=== PATIENT | female | born 1960 | race Caucasian/White ===

== ENCOUNTER 2016-11-11 05:11 | Inpatient (IN) | payer OTHER ==
[2016-09-29 15:18] VITALS: BMI 32.0
--- NOTE | 2016-09-29 15:58 | PAT Medication Instructions ---
Service Date Sep 29, 2016. Current Home Medication List Aspirin (Aspirin Ec), 81 MG PO QAM Atorvastatin (Lipitor), 10 MG PO QAM Calcium Carbonate-Vitamin D (Calcium + D), 1 TAB PO QAM Cholecalciferol (Vitamin D3), 1 TAB PO QAM Coenzyme Q10 (Ubidecarenone) (Coq10), 100 MG PO QAM Diphenhydramine Hcl (Benadryl Allergy), 1 CAP PO HS PRN for PRN Fish Oil ([place]-3), 1 CAP PO QPM Hydrochlorothiazide (Hydrochlorothiazide), 1 TAB PO QAM Ibuprofen (Advil), 800 MG PO PRN Levothyroxine Sodium (Synthroid), 100 MCG PO QAM Multivitamin (Multivitamin), 1 TAB PO QPM Valsartan (Diovan), 80 MG PO QAM [Biotin], 1 TAB PO QPM [Vitamin C], 1 TAB PO QPM Medication Instructions For Your Scheduled Surgery - Check with surgeon for instructions: Ibuprofen (Advil), 800 MG PO PRN - Hold the following medications 2 weeks prior to surgery: Fish Oil ([place]-3), 1 CAP PO QPM Coenzyme Q10 (Ubidecarenone) (Coq10), 100 MG PO QAM - Hold the following medications the morning of surgery: Valsartan (Diovan), 80 MG PO QAM Hydrochlorothiazide (Hydrochlorothiazide), 1 TAB PO QAM Cholecalciferol (Vitamin D3), 1 TAB PO QAM Calcium Carbonate-Vitamin D (Calcium + D), 1 TAB PO QAM Aspirin (Aspirin Ec), 81 MG PO QAM (okay per surgeon) - Take the following medications the morning of surgery with a sip of water: Levothyroxine Sodium (Synthroid), 100 MCG PO QAM Atorvastatin (Lipitor), 10 MG PO QAM - Take the following medications as scheduled the night before surgery: [Biotin], 1 TAB PO QPM [Vitamin C], 1 TAB PO QPM Multivitamin (Multivitamin), 1 TAB PO QPM Diphenhydramine Hcl (Benadryl Allergy), 1 CAP PO HS PRN for PRN If you have any questions please call us at [phone] (Rosangela Myles PA-C) or [phone] or [phone]
--- NOTE | 2016-09-29 16:50 | DIAGNOSTIC IMAGING REPORT ---
CHEST PREADMISSION(PA/LAT) HISTORY: Preop. COMPARISON: None. FINDINGS: The lungs are clear. Cardiac silhouette is normal in size. No pleural effusions. No pneumothorax. IMPRESSION: No acute process. Electronically signed by: Bob Monk M.D. 09/29/2016 4:49 PM Dictated Date/Time: 09/29/2016 4:46 PM
[2016-09-29 16:58] LABS: BASO % 0.3 %; BASO ABS # 0.02 K/uL (0-0.2); COMPLETE YES; EOS % 1.5 %; HEMATOCRIT 37.5 % (37-47); IG% 0.2 %; LYMPH % 27.9 %; LYMPH ABS # 1.84 K/uL (1.2-3.4); MEAN CORPUSCULAR HEMOGLOBIN 30.8 pg (25-34); MEAN CORPUSCULAR HGB CONC 33.9 g/dl (32-36); MEAN PLATELET VOLUME 9.4 fL (7.4-10.4); MONO % 7.6 %; NEUT % 62.5 %; PLATELET COUNT 370 K/uL (130-400); RED BLOOD COUNT 4.12 M/uL (4.2-5.4)
[2016-09-29 17:08] LABS: INR 1.1 (0.9-1.1); PROTHROMBIN TIME (PATIENT) 11.3 SECONDS (9.0-12.0)
--- NOTE | 2016-11-10 17:41 | HISTORY & PHYSICAL EXAMINATION ---
DATE OF ADMISSION: 11/11/2016 HISTORY AND PHYSICAL ADMISSION NOTE PRE-OPERATIVE DIAGNOSIS: Primary osteoarthritis of the left hip. 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 She states she has been having left hip pain for about 2-1/2 years. Radiographs and clinical examination have been diagnostic for primary osteoarthritis of the left hip. After failing years of conservative treatment, she elected to proceed with a left total hip arthroplasty. She understands the risks, benefits, alternatives to procedure and elected to proceed. PAST MEDICAL HISTORY: Significant for hypothyroidism, history of DVTs, hyperlipidemia, and hypertension. PAST SURGICAL HISTORY: Significant for a T\T\A, hysterectomy and a right inguinal hernia repair. ALLERGIES: None. MEDICATIONS: Include Levoxyl 100 mcg daily, hydrochlorothiazide 12.5 mg daily, valsartan 80 mg daily, aspirin 81 mg daily, Lipitor 10 mg daily. FAMILY HISTORY: Noncontributory. SOCIAL HISTORY: She is . She has 1-2 drinks a week. She denies any tobacco or IV drug use. She is very active. REVIEW OF SYSTEMS: The patient complains of significant left hip and groin pain. All other pertinent review of systems are negative. PHYSICAL EXAMINATION: GENERAL: She is awake, alert and orient x3. She is in no apparent distress. She is very pleasant. HEENT: Pupils are equal, round and reactive to light. Extraocular motions intact. Oral mucosa is pink and moist. HEART: Regular rate per radial pulse. LUNGS: Jemma symmetrically bilaterally with no audible breath sounds. ABDOMEN: Soft, nontender, nondistended. MUSCULOSKELETAL: On physical examination of her left hip, she does ambulate independently. She has a slight limp. She has very reproducible deep groin pain with forced internal and external rotation of the hip. Her leg lengths are essentially equal. IMAGING DATA: Radiographs of the left hip do show advanced osteoarthritis and osteophyte formation on the superior lateral aspect of the acetabulum. IMPRESSION: Primary osteoarthritis of the left hip. PLAN: We will proceed with a Biomet taper lock left total hip arthroplasty. Postoperatively, she will be kept at the hospital for postoperative medical management. She will be started on Xarelto postoperatively because of her history of DVTs.
[~2016-11-11] VITALS: Ht 175.3 cm; Wt 98.8 kg
[2016-11-11] VITALS (9 sets, daily range): BP systolic 96–151; BP diastolic 60–88; PULSE 69–84; TEMP 36.5–36.8; O2SAT 96–100; Ht 175.3 cm; Wt 98.8 kg
[~2016-11-11 05:11] MED LIST: ASPI81TA28 PO; ATOR10TA88 PO; BIOTPOW17 PO; CALC600T9 PO; CHOL1000 PO; COEN100C7 PO; DIPH25CA65 PO; DVN80 PO; HYDR12.55 PO; IBUP-1050 PO; LEVO100T PO; MULT-506 PO; OMEG10007 PO; VITAMIN C PO
[2016-11-11] MEDS ORDERED: GABAPENTIN 300 MG CAP PO SCH (06:00)
[2016-11-11] MEDS ORDERED: ROPIVACAINE 5MG/ML 30 ML 150 MG, BUPIVACAINE/EPINEPHR 0.5% MPF 30 ML, KETOROLAC TROMETH... INFIL SCH ×7 (06:00)
[2016-11-11] MEDS ORDERED: LACTATED RINGER'S 1000ML IV SCH (06:00)
[2016-11-11] MEDS ORDERED: CEFAZOLIN 2000 MG/60 ML D5W 60 ML IV SCH (06:00)
[2016-11-11] MEDS ORDERED: FAMOTIDINE 20 MG TAB PO SCH (06:00)
[2016-11-11] MEDS ORDERED: LACTATED RINGER'S 1000ML 500 ML IV ONE (06:00)
[2016-11-11] MEDS ORDERED: ACETAMINOPHEN 500 MG TAB PO SCH (06:00)
[2016-11-11] MEDS ORDERED: LACTATED RINGER'S 1000ML 1,000 ML IV SCH (06:00)
[2016-11-11] MEDS ORDERED: BUPIVACAINE 0.5 % 5 MG/1 ML PF 10ML VIAL ONE (06:18)
--- NOTE | 2016-11-11 06:21 | History & Physical Bridge Note ---
H&P Re-Evaluation Bridge Note: I have examined the patient, reviewed the History & Physical and in the interval since the performance of the History & Physical I have noted the following changes of clinical significance: No changes noted
[2016-11-11] MEDS: TRANEXAMIC ACID INJ 1,000 MG in SODIUM CHLORIDE 0.9% 100ML 100 ML IV SCH ×2 (06:30→06:55)
[2016-11-11] MEDS ORDERED: PROPOFOL IV EMULSION 10 MG/ML 20 ML VIAL IV ONE (06:45)
[2016-11-11] MEDS ORDERED: MIDAZOLAM HCL 1 MG/ML 2ML VIAL ONE ×2 (06:45→07:47)
[2016-11-11] MEDS ORDERED: ATROPINE SULFATE 0.1 MG/ML 5ML SYR IV PRN (06:45)
[2016-11-11] MEDS ORDERED: EpHEDrine SULFATE INJ 50 MG/ML AMP IV PRN (06:45)
[2016-11-11] MEDS ORDERED: LIDOCAINE HCL 2% 2 ML VIAL (20MG/ML) ONE (06:45)
[2016-11-11] MEDS ORDERED: FENTANYL CITRATE INJ 50 MCG/1 ML 2 ML VIAL IV PRN (06:45)
[2016-11-11] MEDS ORDERED: FENTANYL CITRATE INJ 50 MCG/1 ML 2 ML VIAL ONE (06:45)
[2016-11-11] MEDS ORDERED: ONDANSETRON INJ 2 MG/ML 2 ML VIAL IV PRN (06:45)
[2016-11-11] MEDS ORDERED: ORTHO JOINT ANESTHETIC ONE (07:01)
[2016-11-11] MEDS ORDERED: BACITRACIN 50000 UNIT VIAL ONE (07:02)
[2016-11-11] MEDS ORDERED: POVIDONE-IODINE OP SOLN 30 ML BTL ONE (07:05)
--- NOTE | 2016-11-11 09:22 | [facility] Post Operative Brief Note ---
Immediate Operative Summary Operative Date Nov 11, 2016. Pre-Operative Diagnosis Primary osteoarthritis of the left hip Post-Operative Diagnosis Primary osteoarthritis of the left hip Procedure(s) Performed Left total hip arthroplasty, direct anterior approach Surgeon Dr Jackson Posada Disc Pad Knockout Worker Surgeon(s) Dr Blake Grigsby Findings as above Specimens A: left femoral head Complication(s) None Disposition Recovery Room / PACU
[2016-11-11] MEDS ORDERED: MoRPHine SULFATE 2 MG/ML CARP IV PRN (09:30)
[2016-11-11] MEDS ORDERED: OXYCODONE HCL IR 5 MG TAB (IMMEDIATE RELEASE) PO PRN (09:30)
[2016-11-11] MEDS ORDERED: MAGNESIUM HYDROXIDE SUSP 30 ML UDC PO PRN (09:30)
[2016-11-11] MEDS ORDERED: BISACODYL 10 MG SUPP PR PRN (09:30)
[2016-11-11] MEDS ORDERED: SOD PHOSPHATE/SOD BIPHOSPHATE ENEMA 132 ML BTL PR PRN (09:30)
--- NOTE | 2016-11-11 10:18 | Anesthesiology Progress Note ---
Anesthesia Post Op Note Date & Time Nov 11, 2016 at 10:19 Vital Signs Pain Intensity: 0 Vital Signs Past 12 Hours Date Time Temp Pulse Resp B/P Pulse Ox O2 Delivery O2 Flow Rate FiO2 11/11/16 10:10 78 16 121/66 100 Nasal Cannula 2 11/11/16 10:00 68 14 100/73 100 Nasal Cannula 2 11/11/16 09:50 65 13 104/73 100 Nasal Cannula 2 11/11/16 09:42 37.0 87 12 123/61 98 Nasal Cannula 2 11/11/16 05:35 36.8 80 20 151/88 100 Room Air Notes Mental Status: alert / awake / arousable, participated in evaluation Pt Amnestic to Procedure: Yes Nausea / Vomiting: adequately controlled Pain: adequately controlled Airway Patency, RR, SpO2: stable & adequate BP & HR: stable & adequate Hydration State: stable & adequate Neuraxial Anesthesia: was administered, sensory block is resolving Anesthetic Complications: no major complications apparent
--- NOTE | 2016-11-11 10:19 | OPERATIVE REPORT ---
DATE OF OPERATION: 11/11/2016 PREOPERATIVE DIAGNOSIS: Primary osteoarthritis of the left hip. POSTOPERATIVE DIAGNOSIS: Same. PROCEDURE: Left total hip arthroplasty through the anterior approach. SURGEON: Dr. Jackson Posada. BALANCE AND HAIRSPRING ASSEMBLER: Dr. Brian Grigsby and Ray Navarrete PA-C, whose assistance was necessary for positioning the leg and helping with retraction. ANESTHESIA: Spinal. COMPLICATIONS: None. CONDITION: Stable to PACU. IMPLANTS USED: I used a Biomet taper lock size 13 standard offset femoral stem with a 40 mm +6 ceramic head, a 40 mm E-poly neutral liner, a 30 mm screw and a 54 mm cup. No cement was used during the case. INDICATIONS: Luz is a very pleasant 56-year-old female who presented to my office with chronic left hip pain. X-rays and clinical examination were diagnostic for primary osteoarthritis of the left hip. After failing conservative treatment, she elected to undergo a left total hip arthroplasty. On 11/11/2016 she arrived at [facility] for the above procedure. She was seen in the preoperative holding area and the operative extremity was identified and signed. She was given a preoperative antibiotic, taken back to the operating room, laid on the table in a supine position. The left hip was then prepped and draped in a sterile fashion. A time-out was done and the patient and operative extremity was properly identified. An anterior Hendrickson approach was utilized. Dissection was taken down through the tensor fascia and the tensor was retracted laterally and the sartorius medially. The rectus was elevated off the femoral neck and the capsule was exposed. The capsule was incised and tagged. The femoral neck was then cut with an oscillating saw and the femoral head was removed. The acetabulum was exposed. Time was spent doing a complete capsular labral release. Sequential reaming up to a size 53 reamer was done. This was checked under fluoroscopy for appropriate position of the cup. A 54 mm cup was then impacted into place. A single 30 mm screw was placed and the E-poly liner was snapped into place. The femoral neck was then exposed and appropriate releases were done. Sequential broaching up to a size 13 broach was done. The 13 seemed to be tight fit. A trial head was placed. The hip was reduced and it looked to be a little bit short. Several different trials were used and a size +6 seemed to be the best fit. She did have a very valgus femoral neck. The final size 13 implant was then impacted into place, followed by a +6 x 40 mm ceramic head. The hip was then reduced and fluoroscopy was used to measure up the lesser trochanters and it appeared to be a great fit. The wound was then irrigated. All surrounding soft tissues were injected with 100 mL of an orthopedic pain control cocktail. The capsule was then tied. A drain was placed. The fascia was closed with #1 Vicryl, skin was closed with 2-0 Vicryl and 3-0 V-Loc suture and a Prineo dressing. She was placed in a soft dressing and taken to the postanesthesia care unit in stable condition. She tolerated the procedure well. I attest to the content of the Intraoperative Record and any orders documented therein. Any exceptio ns are noted below.
--- NOTE | 2016-11-11 10:26 | DIAGNOSTIC IMAGING REPORT ---
AP PELVIS AND LEFT HIP 2 VIEWS CLINICAL HISTORY: Degenerative arthritis COMPARISON STUDY: No previous studies for comparison. FINDINGS: There are moderate osteoarthritic changes present within the right hip. There is unroofing of the right femoral head. On the left there are postsurgical changes of a total left hip arthroplasty. The acetabular and femoral components appear well seated. There is no dislocation. There are no acute fractures. There is air within the soft tissues consistent with recent surgery. There is an overlying surgical drain. IMPRESSION: 1. Postsurgical changes of a total left hip arthroplasty 2. Moderate osteoarthritic changes involving the right hip. Suspected underlying right hip dysplasia. Electronically signed by: Aroldo Acosta M.D. 11/11/2016 10:25 AM Dictated Date/Time: 11/11/2016 10:24 AM
--- NOTE | 2016-11-11 12:13 | DIAGNOSTIC IMAGING REPORT ---
INTRAOPERATIVE LEFT HIP SINGLE VIEW CLINICAL HISTORY: Left hip arthroplasty COMPARISON STUDY: No previous studies for comparison. FINDINGS: 45 seconds of fluoroscopic time was utilized. A single intraoperative fluoroscopic spot images provided for interpretation. There are postsurgical changes of a total left hip arthroplasty. The acetabular and femoral components appear well seated. There is no dislocation of this single projection. IMPRESSION: Intraoperative fluoroscopic spot image demonstrating a total left hip arthroplasty Electronically signed by: Aroldo Acosta M.D. 11/11/2016 12:11 PM Dictated Date/Time: 11/11/2016 12:11 PM
[2016-11-11] MEDS: D5W AND 1/2NSS + 20MEQ KCL 1,000 ML IV SCH ×2 (12:53→22:02)
[2016-11-11 13:13] LABS: CREATININE 0.55 mg/dl (0.60-1.20)
[2016-11-11] MEDS: ACETAMINOPHEN IV 1,000 MG in EMPTY BAG 0 ML IV SCH ×2 (14:14→21:27)
[2016-11-11] MEDS: CEFAZOLIN IV 2,000 MG in DEXTROSE 5% 50ML 50 ML IV SCH ×2 (14:33→21:34)
[2016-11-11] MEDS: KETOROLAC TROMETHAMINE 30 MG/ML VIAL IV. SCH ×2 (16:36→21:36)
[2016-11-11] MEDS ORDERED: BIOTIN PO SCH (21:00)
[2016-11-11] MEDS: ASCORBIC ACID 500 MG TAB PO SCH (21:26)
[2016-11-11] MEDS: MULTIVITAMIN TAB PO SCH (21:26)
[2016-11-11] MEDS: DOCUSATE SODIUM 100 MG CAP PO SCH (21:26)
[2016-11-11] MEDS: SENNA 8.6 MG TAB PO SCH (21:26)
[2016-11-12 03:31] VITALS: BP 99/61; PULSE 80; TEMP 36.6; O2SAT 97
[2016-11-12] MEDS: KETOROLAC TROMETHAMINE 30 MG/ML VIAL IV. SCH ×4 (03:47→21:32)
[2016-11-12] MEDS: LEVOTHYROXINE 100 MCG TAB PO SCH (06:24)
[2016-11-12] MEDS: ACETAMINOPHEN IV 1,000 MG in EMPTY BAG 0 ML IV SCH (06:24)
[2016-11-12 07:19] LABS: BASO % 0.2 %; BASO ABS # 0.02 K/uL (0-0.2); COMPLETE YES; EOS % 1.3 %; HEMATOCRIT 30.4 % (37-47); IG% 0.3 %; LYMPH % 23.6 %; LYMPH ABS # 2.07 K/uL (1.2-3.4); MEAN CELL VOLUME 91.6 fL (80-100); MEAN CORPUSCULAR HEMOGLOBIN 30.7 pg (25-34); MEAN CORPUSCULAR HGB CONC 33.6 g/dl (32-36); MEAN PLATELET VOLUME 9.4 fL (7.4-10.4); MONO % 9.6 %; PLATELET COUNT 262 K/uL (130-400); RED BLOOD COUNT 3.32 M/uL (4.2-5.4); WHITE BLOOD COUNT 8.76 K/uL (4.8-10.8)
[2016-11-12 07:52] LABS: BUN/CREATININE RATIO 16.5 (10-20); CREATININE 0.65 mg/dl (0.60-1.20); POTASSIUM 3.5 mmol/L (3.5-5.1)
[2016-11-12] MEDS: D5W AND 1/2NSS + 20MEQ KCL 1,000 ML IV SCH (08:30)
[2016-11-12] MEDS: ATORVASTATIN 10 MG TAB PO SCH (08:51)
[2016-11-12] MEDS: HYDROCHLOROTHIAZIDE 25 MG TAB PO SCH (08:52)
[2016-11-12] MEDS: DOCUSATE SODIUM 100 MG CAP PO SCH ×2 (08:52→20:55)
[2016-11-12] MEDS: RIVAROXABAN 10 MG TAB PO SCH (08:53)
[2016-11-12] MEDS: VALSARTAN 80 MG TAB PO SCH (08:53)
[2016-11-12] MEDS: CHOLECALCIFEROL 1000 INTER.UNIT TAB PO SCH (08:53)
[2016-11-12] MEDS: CALCIUM 600MG + VIT D 400 IU TAB PO SCH (08:53)
[2016-11-12] MEDS ORDERED: NON-FORMULARY MEDICATION (Coenzyme Q10 (Ubidecarenone) (Coq10) 100 MG) PO SCH (09:00)
[2016-11-12 11:16] VITALS: BP 111/70; PULSE 74; TEMP 36.5; O2SAT 100
[2016-11-12 15:14] VITALS: BP 124/80; PULSE 78; TEMP 36.7; O2SAT 97
[2016-11-12 15:45] VITALS: O2SAT 97
[2016-11-12] MEDS ORDERED: RXC5 PO (15:54)
--- NOTE | 2016-11-12 15:55 | Discharge Instructions ---
Discharge Instructions Admission Reason for Admission: osteoarthritis hip left Discharge Discharge Diagnosis / Problem: L STACIA Discharge Goals Goal(s): Decrease discomfort, Improve function Activity Recommendations Activity Limitations: resume your previous activity Shower/Bathe: may shower/bathe in 3 days may shower on Wednesday, leave glue dressing in place . Instructions / Follow-Up Instructions / Follow-Up in [address] Posada Current Hospital Diet Patient's current hospital diet: Regular Diet Discharge Diet Recommended Diet: Regular Diet Procedures Procedures Performed: Left total hip arthroplasty, direct anterior approach Pending Studies Studies pending at discharge: no Medical Emergencies . Who to Call and When: Medical Emergencies: If at any time you feel your situation is an emergency, please call 911 immediately. . Non-Emergent Contact Non-Emergency issues call your: Surgeon Call Non-Emergent contact if: wound has increased drainage, wound has increased redness . "Provider Documentation" section prepared by Jackson Posada. VTE Core Measure Inpt VTE Proph given/why not?: Other Anticoagulation (Xerelto 10mg daily)
--- NOTE | 2016-11-12 16:05 | PROGRESS NOTE ---
DATE: 11/12/2016 DATE: 11/12/2016. CHIEF COMPLAINT: Status post left total hip arthroplasty postop day #1. PROGRESS: Luz was seen and examined at bedside today. Overall, she is doing very well. She has been up and ambulating with physical therapy. She is taking very little pain medications. She has no complaints. PHYSICAL EXAMINATION: LEFT HIP: The dressing is clean and dry and the drain is to suction. Her leg lengths are equal. She has active dorsiflexion and plantarflexion of her left ankle and no pain over the femoral cutaneous nerve. X-RAYS: Radiographs postoperatively of the left hip showed the prosthesis to be in anatomical alignment without any evidence of fracture, dislocation, or loosening. LABORATORY DATA: She has an H\T\H today of 10.2 and 30.4. Her glucose is 95. Her Vital signs are all stable on room air and she is voiding on her own. IMPRESSION: Status post left total hip arthroplasty postop day #1. PLAN: At this point, she is doing very well. She continued to work with physical therapy. Tomorrow the nursing staff can change the dressing, pull the drain and we will discharge her to home later in the morning.
[2016-11-12] MEDS: MULTIVITAMIN TAB PO SCH (20:55)
[2016-11-12] MEDS: SENNA 8.6 MG TAB PO SCH (20:55)
[2016-11-12] MEDS: ASCORBIC ACID 500 MG TAB PO SCH (20:56)
[2016-11-12 22:55] VITALS: BP 118/77; PULSE 83; TEMP 36.8; O2SAT 93
[2016-11-13] MEDS: KETOROLAC TROMETHAMINE 30 MG/ML VIAL IV. SCH ×2 (04:14→10:09)
[2016-11-13] MEDS: LEVOTHYROXINE 100 MCG TAB PO SCH (05:47)
[2016-11-13 06:38] VITALS: BP 122/77; PULSE 74; TEMP 36.9; O2SAT 94
--- NOTE | 2016-11-13 07:01 | PROGRESS NOTE ---
DATE: 11/13/2016 CHIEF COMPLAINT: Status post left total hip arthroplasty postop day #2. PROGRESS: Ms. Escobar was seen and examined at bedside today. Overall, she is doing very well. She really does not have any pain in her left hip. She has been up and ambulating well with physical therapy. She has no complaints. PHYSICAL EXAMINATION: LEFT HIP: The dressing is clean and dry and has been changed this morning. The drain has been pulled. She is neurovascularly intact. IMPRESSION: Status post left total hip arthroplasty postop day #2. PLAN: At this point, she is doing very well. She has been up and ambulating well with physical therapy. She has very little pain in her hip. She will be seen by physical therapy later this morning and discharged to home.
--- NOTE | 2016-11-13 07:10 | DISCHARGE SUMMARY ---
DISCHARGE DIAGNOSIS: Primary osteoarthritis of the left hip. PROCEDURE: Left total hip arthroplasty on 11/11/[address] Jackson Posada. DISCHARGE INSTRUCTIONS: 1. Oxycodone 5-10 mg every 4 hours as needed for pain. 2. Xarelto 10 mg daily. 3. Knee-high VELIA hose stockings for 6 weeks. 4. Follow up with Dr. Posada in 2 weeks. 5. Call the office of Dr. Posada with any questions or concerns. 6. Lipitor 10 mg daily. 7. Calcium plus D daily. 8. Vitamin D3 1000 units daily. 9. CoQ10 100 mg daily. 10. Benadryl 25 mg at night. 11. [place] 3 daily. 12. Hydrochlorothiazide 12.5 mg daily. 13. Advil 800 mg as needed. 14. Synthroid 100 mcg daily. 15. Daily multivitamin. 16. Diovan 80 mg daily. HOSPITAL COURSE: Luz is a pleasant 56-year-old female who presented to my office with chronic left groin pain. X-rays and clinical examination were diagnostic for primary osteoarthritis of the left hip. After failing years of conservative treatment, she elected to undergo a left total hip arthroplasty. On 11/11/2016 she arrived at [facility] and underwent a left hip replacement without complications. It was done through a direct anterior approach. Postoperatively, she was placed on Xarelto for DVT prophylaxis because of a history of DVTs in the past. Hospital course was uneventful. On postop day #1 her H\T\H was stable at 10.2 and 30.4. She was ambulating well with physical therapy. Her pain was controlled. On postop day #2 the dressing was changed, the drain was pulled. She continued to work well with physical therapy and was subsequently discharged to home with the above instructions.
[2016-11-13 08:00] VITALS: O2SAT 94
[2016-11-13] MEDS: ATORVASTATIN 10 MG TAB PO SCH (08:44)
[2016-11-13] MEDS: DOCUSATE SODIUM 100 MG CAP PO SCH (08:44)
[2016-11-13] MEDS: HYDROCHLOROTHIAZIDE 25 MG TAB PO SCH (08:45)
[2016-11-13] MEDS: RIVAROXABAN 10 MG TAB PO SCH (08:45)
[2016-11-13] MEDS: CALCIUM 600MG + VIT D 400 IU TAB PO SCH (08:45)
[2016-11-13] MEDS: CHOLECALCIFEROL 1000 INTER.UNIT TAB PO SCH (08:45)
[2016-11-13] MEDS: VALSARTAN 80 MG TAB PO SCH (08:49)
[2016-11-13 11:58] VITALS: BP 115/73; PULSE 73; TEMP 36.9; O2SAT 98
[2016-11-13 13:25] VITALS: BP 115/73; PULSE 73; TEMP 36.9; O2SAT 98
== END 2016-11-13 14:15 | disposition home health service (06) | DRG 470 ==
LOC: ENRESERVDT → ENRESERVTM → C.ACU 05:11 → C.MSW 09:28
PROVIDERS: ADMIT Orthopaedic Surgery; ATTEND Orthopaedic Surgery
PROC: 0SRB04A Replacement of Left Hip Joint with Ceramic on Polyethylene Synthetic Substitute, Uncemented, Open Approach (ICD-10-PCS; principal; 2016-11-11 07:15)
DX: M16.12 Unilateral primary osteoarthritis, left hip (principal); I10 Essential (primary) hypertension; E78.5 Hyperlipidemia, unspecified; E03.9 Hypothyroidism, unspecified; Z79.899 Other long term (current) drug therapy; Z79.82 Long term (current) use of aspirin

== ENCOUNTER 2018-01-07 05:00 | Inpatient (IN) | payer OTHER ==
[2017-12-13 15:29] VITALS: Ht 175.3 cm; Wt 101.5 kg
--- NOTE | 2017-12-13 15:47 | PAT Medication Instructions ---
Service Date Dec 13, 2017. Current Home Medication List Ascorbic Acid (Vitamin C), 500 MG PO QPM Aspirin (Aspirin Ec), 81 MG PO QAM Atorvastatin (Lipitor), 10 MG PO QAM Calcium Carbonate-Vitamin D (Calcium + D), 1 TAB PO QPM Cholecalciferol (Vitamin D3), 1 TAB PO QAM Coenzyme Q10 (Ubidecarenone) (Coq10), 100 MG PO QAM Diphenhydramine Hcl (Benadryl Allergy), 50 MG PO HS Fish Oil ([place]-3), 1 CAP PO QPM Hydrochlorothiazide (Hydrochlorothiazide), 12.5 MG PO QAM Ibuprofen (Advil), 800 MG PO HS Levothyroxine Sodium (Synthroid), 112 MCG PO QAM Multivitamin (Multivitamin), 1 TAB PO QPM Valsartan (Diovan), 80 MG PO QAM [Biotin], 1 TAB PO QPM Medication Instructions For Your Scheduled Surgery - Check with surgeon for instructions: Ibuprofen (Advil), 800 MG PO HS - Hold the following medications 2 weeks prior to surgery: Fish Oil ([place]-3), 1 CAP PO QPM Coenzyme Q10 (Ubidecarenone) (Coq10), 100 MG PO QAM - Hold the following medications the morning of surgery: Cholecalciferol (Vitamin D3), 1 TAB PO QAM Hydrochlorothiazide (Hydrochlorothiazide), 12.5 MG PO QAM Valsartan (Diovan), 80 MG PO QAM - Take the following medications the morning of surgery with a sip of water: Levothyroxine Sodium (Synthroid), 112 MCG PO QAM Aspirin (Aspirin Ec), 81 MG PO QAM Atorvastatin (Lipitor), 10 MG PO QAM - Take the following medications as scheduled the night before surgery: [Biotin], 1 TAB PO QPM Multivitamin (Multivitamin), 1 TAB PO QPM Diphenhydramine Hcl (Benadryl Allergy), 50 MG PO HS Calcium Carbonate-Vitamin D (Calcium + D), 1 TAB PO QPM Ascorbic Acid (Vitamin C), 500 MG PO QPM If you have any questions please call us at [phone] or [phone] or [phone]
[2017-12-13 16:39] LABS: BASO % 0.5 %; BASO ABS # 0.03 K/uL (0-0.2); EOS % 1.3 %; EOS ABS # 0.08 K/uL (0-0.5); HEMATOCRIT 37.9 % (37-47); HEMOGLOBIN 12.9 g/dL (12.0-16.0); IG# 0.01 K/uL (0.00-0.02); LYMPH % 35.7 %; LYMPH ABS # 2.24 K/uL (1.2-3.4); MEAN CELL VOLUME 90.5 fL (80-100); MEAN CORPUSCULAR HEMOGLOBIN 30.8 pg (25-34); MEAN PLATELET VOLUME 9.1 fL (7.4-10.4); MONO % 9.6 %; NEUT % 52.7 %; NEUT ABS # 3.32 K/uL (1.4-6.5); PLATELET COUNT 348 K/uL (130-400); RED CELL DISTRIBUTION WIDTH CV 13.1 % (11.5-14.5); RED CELL DISTRIBUTION WIDTH SD 42.9 fL (36.4-46.3); WHITE BLOOD COUNT 6.28 K/uL (4.8-10.8)
--- NOTE | 2017-12-13 16:41 | DIAGNOSTIC IMAGING REPORT ---
CHEST 2 VIEWS ROUTINE CLINICAL HISTORY: Preoperative chest COMPARISON STUDY: 09/29/2016 FINDINGS: The cardiac and mediastinal contours are normal. There is no evidence of focal pulmonary consolidation. There is no evidence of failure. No pleural effusions are visualized.[ IMPRESSION: No active disease in the chest. Electronically signed by: Aroldo Acosta M.D. 12/13/2017 4:40 PM Dictated Date/Time: 12/13/2017 4:40 PM
[2017-12-13 16:46] LABS: CREATININE 0.83 mg/dl (0.60-1.20)
[2017-12-13 16:47] LABS: CALCIUM 9.3 mg/dl (8.5-10.1); POTASSIUM 3.9 mmol/L (3.5-5.1)
--- NOTE | 2018-01-05 08:12 | HISTORY & PHYSICAL EXAMINATION ---
DATE OF ADMISSION: 01/07/2018 CHIEF COMPLAINT: Primary osteoarthritis of the right hip. HISTORY OF PRESENT ILLNESS: Luz is a very pleasant 57-year-old female who I did a left total hip arthroplasty in 10/2016. She has done extremely well with that. Unfortunately, she has been having pain in her right hip. X-rays and clinical examination were diagnostic for primary osteoarthritis of the right hip. After failing conservative treatment, she elected to proceed with a right total hip arthroplasty. PAST MEDICAL HISTORY: Significant for hypothyroidism, history of DVTs, hyperkalemia, and hypertension. PAST SURGICAL HISTORY: Significant for a T and A, hysterectomy, and right inguinal hernia repair. ALLERGIES: None. MEDICATIONS: Include Levoxyl 100 mcg daily, hydrochlorothiazide 12.5 mg daily, valsartan 80 mg daily, aspirin 81 mg daily, Lipitor 10 mg daily. FAMILY HISTORY: Denies. SOCIAL HISTORY: She is , has 1-2 drinks a week. Denies any tobacco or IV drug use. She is very active. REVIEW OF SYSTEMS: She complains of right hip and groin pain. All other pertinent review of systems are negative. PHYSICAL EXAMINATION: GENERAL: She is awake, alert, and oriented x3. She is in no apparent distress. She is very pleasant. HEENT: Pupils are equal, round, reactive to light. Extraocular motion is intact. Oral mucosa is pink and moist. HEART: Regular rate per radial pulse. LUNGS: Jemma symmetrically bilaterally with no audible breath sounds. ABDOMEN: Soft, nontender, nondistended. MUSCULOSKELETAL: On physical examination of the right hip, she ambulates independently. She has a slight limp. She has very reproducible deep groin pain with forced internal and external rotation of the hip. Her leg lengths are equal. IMAGING DATA: X-rays of the pelvis show a well-placed left total hip arthroplasty, but severe osteoarthritis of the right hip. There is joint space narrowing, osteophyte formation, and subchondral cyst. IMPRESSION: Primary osteoarthritis of the right hip. PLAN: Will proceed with a Biomet total hip arthroplasty. Postoperatively, she will be started on Xarelto because of her history of DVTs. She will be kept in the hospital overnight for postop medical management.
[~2018-01-07] VITALS: Ht 175.3 cm; Wt 101.5 kg
[2018-01-07] VITALS (9 sets, daily range): BP systolic 104–150; BP diastolic 64–90; PULSE 76–93; TEMP 36.5–37.2; O2SAT 97–100
[~2018-01-07 05:00] MED LIST changes: +ASCO500T3 PO; +ATOR10TA82 PO; -ATOR10TA88 PO; +DIPH1TAB87 PO; -DIPH25CA65 PO; -LEVO100T PO; +LEVO112T2 PO; -VITAMIN C PO
[2018-01-07] MEDS ORDERED: FAMOTIDINE 20 MG TAB PO SCH (06:00)
[2018-01-07] MEDS ORDERED: LACTATED RINGER'S 1000ML IV SCH (06:00)
[2018-01-07] MEDS ORDERED: ACETAMINOPHEN 500 MG TAB PO SCH (06:00)
[2018-01-07] MEDS ORDERED: ROPIVACAINE 5MG/ML 30 ML 150 MG, BUPIVACAINE 0.5% MPF INJ 30 ML, EpINEphrine HCL INJ 0.... INFIL SCH ×8 (06:00)
[2018-01-07] MEDS ORDERED: CEFAZOLIN 2000MG IV PUSH 15 ML IV SCH (06:00)
[2018-01-07] MEDS ORDERED: GABAPENTIN 600 MG PO SCH (06:00)
[2018-01-07] MEDS ORDERED: LACTATED RINGER'S 1000ML 1,000 ML IV SCH (06:00)
[2018-01-07] MEDS ORDERED: BUPIVACAINE 0.5 % 5 MG/1 ML PF 10ML VIAL ONE (06:27)
[2018-01-07] MEDS ORDERED: FENTANYL CITRATE INJ 50 MCG/1 ML 2 ML VIAL ONE (06:28)
[2018-01-07] MEDS ORDERED: MIDAZOLAM HCL 1 MG/ML 2ML VIAL ONE ×2 (06:28→07:03)
[2018-01-07] MEDS: TRANEXAMIC ACID INJ 1,000 MG x 2 Bags IV SCH ×4 (06:30→06:38)
[2018-01-07] MEDS ORDERED: ORTHO JOINT ANESTHETIC ONE (06:47)
[2018-01-07] MEDS ORDERED: BACITRACIN 50000 UNIT VIAL ONE (06:47)
[2018-01-07] MEDS ORDERED: PROPOFOL IV EMULSION 10 MG/ML 20 ML VIAL IV ONE (07:13)
[2018-01-07] MEDS ORDERED: ATROPINE SULFATE 0.1 MG/ML 5ML SYR IV PRN (07:15)
[2018-01-07] MEDS ORDERED: EpHEDrine SULFATE INJ 50 MG/ML AMP IV PRN (07:15)
[2018-01-07] MEDS ORDERED: PHENYLEPHRINE HCL INJ 10 MG/ML VIAL ONE (08:34)
--- NOTE | 2018-01-07 09:07 | [facility] Post Operative Brief Note ---
Immediate Operative Summary Operative Date Jan 07, 2018. Pre-Operative Diagnosis Primary Osteoarthritis, Right Hip Post-Operative Diagnosis Primary Osteoarthritis, Right Hip Procedure(s) Performed Right Anterior Total Hip Arthroplasty Surgeon Dr. Jackson Posada Remote Operations Producer Surgeon(s) Hermes Navarrete PA-C Estimated Blood Loss 250mL Findings Consistent with Post-Op Diagnosis Specimens Permanent Solution: A.) Right Femoral Head Anesthesia Type Spinal MAC Complication(s) none Disposition Disposition: Recovery Room / PACU
[2018-01-07] MEDS ORDERED: METOCLOPRAMIDE HCL INJ 5 MG/ML 2 ML VIAL IV PRN (09:15)
[2018-01-07] MEDS ORDERED: MoRPHine SULFATE 2 MG/ML CARP IV PRN (09:15)
[2018-01-07] MEDS ORDERED: OXYCODONE HCL IR 5 MG TAB (IMMEDIATE RELEASE) PO PRN (09:15)
[2018-01-07] MEDS ORDERED: SOD PHOSPHATE/SOD BIPHOSPHATE ENEMA 132 ML BTL PR PRN (09:15)
[2018-01-07] MEDS ORDERED: MAGNESIUM HYDROXIDE SUSP 30 ML UDC PO PRN (09:15)
[2018-01-07] MEDS ORDERED: ONDANSETRON INJ 2 MG/ML 2 ML VIAL IV PRN (09:15)
[2018-01-07] MEDS ORDERED: BISACODYL 10 MG SUPP PR PRN (09:15)
--- NOTE | 2018-01-07 09:37 | DIAGNOSTIC IMAGING REPORT ---
R HIP UNILATERAL 1 VIEW CLINICAL HISTORY: RT ANTERIOR TOTAL Fluoroscopy time: 40 seconds. FINDINGS: 2 fluoroscopic spot images of the right hip. There is a right total hip arthroplasty. The hardware appears intact. No fracture or dislocation visualized. IMPRESSION: Fluoroscopy provided for right total hip arthroplasty. Electronically signed by: Bob Monk M.D. 01/07/2018 9:35 AM Dictated Date/Time: 01/07/2018 9:35 AM
--- NOTE | 2018-01-07 09:38 | DIAGNOSTIC IMAGING REPORT ---
AP PELVIS, CROSSTABLE LATERAL RIGHT HIP History: Right total hip arthroplasty. Degenerative arthritis. Postop. FINDINGS: The patient is status post a right total hip arthroplasty. The hardware is intact. No acute fracture or dislocation. Skin mary anne are in place. Evidence for prior left total hip arthroplasty. IMPRESSION: Right total hip arthroplasty. No evidence for hardware complication Electronically signed by: Bob Monk M.D. 01/07/2018 9:37 AM Dictated Date/Time: 01/07/2018 9:36 AM
--- NOTE | 2018-01-07 09:43 | Anesthesiology Progress Note ---
Anesthesia Post Op Note Date & Time Jan 07, 2018 at 09:43 Vital Signs Pain Intensity: 0 Vital Signs Past 12 Hours Date Time Temp Pulse Resp B/P (MAP) Pulse Ox O2 Delivery O2 Flow Rate FiO2 01/07/18 09:30 98 18 109/66 100 Nasal Cannula 2 01/07/18 09:20 94 18 109/66 100 Nasal Cannula 2 01/07/18 09:12 36.3 103 18 132/75 100 Nasal Cannula 2 01/07/18 05:56 37.2 90 16 150/90 100 Room Air Notes Mental Status: alert / awake / arousable, participated in evaluation Nausea / Vomiting: adequately controlled Pain: adequately controlled Airway Patency, RR, SpO2: stable & adequate BP & HR: stable & adequate Hydration State: stable & adequate Neuraxial Anesthesia: was administered, sensory block is resolving Anesthetic Complications: no major complications apparent
--- NOTE | 2018-01-07 11:05 | OPERATIVE REPORT ---
DATE OF OPERATION: 01/07/2018 PREOPERATIVE DIAGNOSIS: Primary osteoarthritis of the right hip. POSTOPERATIVE DIAGNOSIS: Same. PROCEDURE: Right total hip arthroplasty. SURGEON: Jackson Posada DO IMMUNOLOGY TEACHER: Hermes Navarrete PA-C, whose assistance was necessary for retraction and closure. ANESTHESIA: Spinal with sedation. COMPLICATIONS: None. CONDITION: Stable to PACU. IMPLANTS USED: I used a [employer] Taperloc total hip arthroplasty system with a size 14 standard offset Taperloc stem, a size 54 G7 cup with a neutral E1 poly liner, a single 30 mm screw, a size 40 ceramic head and a +6 neck. INDICATIONS: Luz is a pleasant 57-year-old female who presented to my office with chronic bilateral hip pain. I did a left total hip arthroplasty on her a year ago. She did very well with that and then she was complaining of increasing right hip pain. X-rays and clinical examination were diagnostic for primary osteoarthritis of the right hip. After failing conservative treatment, she elected to proceed with a right total hip arthroplasty. OPERATION AND FINDINGS: On 01/07/2018, she arrived at [facility] for the above procedure. She was seen in the preoperative holding area and the operative extremity was identified and signed. She was given a spinal anesthetic and a preoperative antibiotic. She was taken back to the operating room, laid on table in supine position and given basic sedation. The right hip was brought out to a Purist leg positioner. The right hip was then prepped and draped in sterile fashion. Time-out was done and the patient and operative extremity was properly identified. An anterior approach was used. Dissection was taken down through the fascia and the tensor muscle belly was retracted laterally and the rectus was retracted medially. The circumflex vessels were ligated. The capsule was exposed and incised and tagged for later repair. The femoral neck was then resected and the acetabulum was exposed. Time was spent doing a complete circumferential labral release. Sequential reaming of the acetabulum up to a size 54 reamer was done. Final reamings were done under fluoroscopy to ensure appropriate version. A size 54 mm G7 cup was then impacted into place. A single 30 mm screw was placed followed by an E1 poly liner. The surrounding soft tissues were injected with 100 mL of an orthopedic pain control cocktail. The proximal femur was then exposed. Sequential broaching of the femur up to a size 14 broach was done. A trial head with a +6 neck was placed and the hip was reduced. On fluoroscopic images, I was happy with the overall alignment and length of the implants. The trials were removed. The final size 14 standard Taperloc stem was then impacted into place. A ceramic 40 mm head with a +6 neck was then impacted into place and the hip was reduced. Final fluoroscopic images showed anatomic alignment. The wound was then irrigated with 3 liters normal saline solution with bacitracin. The capsule was then closed with #1 Vicryl suture. Fascia was closed with #1 PDS suture. Skin was closed with 2-0 Vicryl and mary anne. A Prevena VAC dressing was applied. She was then taken to the postanesthesia care unit in stable condition. She tolerated the procedure well. I attest to the content of the Intraoperative Record and any orders documented therein. Any exception s are noted below.
[2018-01-07] MEDS: ACETAMINOPHEN IV 1,000 MG in EMPTY BAG 0 ML IV SCH ×2 (11:29→20:27)
[2018-01-07] MEDS: KETOROLAC TROMETHAMINE 30 MG/ML VIAL IV. SCH ×3 (11:30→23:44)
[2018-01-07] MEDS: SODIUM CHLORIDE 0.9% 1000ML 1,000 ML IV SCH ×2 (11:31→22:59)
[2018-01-07] MEDS: CEFAZOLIN IV 2,000 MG in SYRINGE 0 ML IV SCH ×2 (16:23→23:44)
[2018-01-07] MEDS: ASCORBIC ACID 500 MG TAB PO SCH (20:27)
[2018-01-07] MEDS: SENNA 8.6 MG TAB PO SCH (20:27)
[2018-01-07] MEDS: DOCUSATE SODIUM 100 MG CAP PO SCH (20:27)
[2018-01-08] MEDS: ACETAMINOPHEN IV 1,000 MG in EMPTY BAG 0 ML IV SCH (03:50)
[2018-01-08 04:09] VITALS: BP 125/74; PULSE 79; TEMP 36.7; O2SAT 98
[2018-01-08] MEDS: LEVOTHYROXINE 112 MCG TAB PO SCH (05:51)
[2018-01-08] MEDS: KETOROLAC TROMETHAMINE 30 MG/ML VIAL IV. SCH ×4 (05:52→23:34)
[2018-01-08] MEDS: SODIUM CHLORIDE 0.9% 1000ML 1,000 ML IV SCH (05:52)
[2018-01-08 06:32] LABS: BASO % 0.1 %; BASO ABS # 0.01 K/uL (0-0.2); EOS % 0.3 %; EOS ABS # 0.02 K/uL (0-0.5); HEMATOCRIT 27.3 % (37-47); HEMOGLOBIN 9.1 g/dL (12.0-16.0); IG# 0.02 K/uL (0.00-0.02); LYMPH % 19.7 %; LYMPH ABS # 1.47 K/uL (1.2-3.4); MEAN CELL VOLUME 92.2 fL (80-100); MEAN CORPUSCULAR HEMOGLOBIN 30.7 pg (25-34); MEAN CORPUSCULAR HGB CONC 33.3 g/dl (32-36); MEAN PLATELET VOLUME 9.3 fL (7.4-10.4); MONO ABS # 0.82 K/uL (0.11-0.59); NEUT % 68.6 %; NEUT ABS # 5.11 K/uL (1.4-6.5); PLATELET COUNT 284 K/uL (130-400); RED CELL DISTRIBUTION WIDTH CV 13.1 % (11.5-14.5); WHITE BLOOD COUNT 7.45 K/uL (4.8-10.8)
[2018-01-08] MEDS: RIVAROXABAN 10 MG TAB PO SCH (06:39)
[2018-01-08 07:05] VITALS: BP 114/76; PULSE 75; TEMP 36.6; O2SAT 97
[2018-01-08 07:07] LABS: CREATININE 0.6 mg/dl (0.60-1.20); POTASSIUM 3.7 mmol/L (3.5-5.1)
--- NOTE | 2018-01-08 08:19 | Discharge Instructions ---
Discharge Instructions Date of Service Jan 08, 2018. Admission Reason for Admission: Right Hip Degenerative Joint Disease Discharge Discharge Diagnosis / Problem: Right Total Hip Discharge Goals Goal(s): Decrease discomfort, Improve function Activity Recommendations Activity Limitations: resume your previous activity . Instructions / Follow-Up Instructions / Follow-Up Activity and Therapy Recommendations: * If you are using [facility] then Physical Therapy will be provided until they feel you are ready to start Outpatient Physical Therapy. If you are not using a Home Health agency then Outpatient Physical Therapy should start about 3-5 days from your day of surgery. Therapy will last about 3-6 weeks * You were shown a series of exercises in the hospital. Do these exercises three times each day including the exercises you were shown in physical therapy. * Get up and walk several times each day.~ For the first four weeks, try not to stand or walk for more than one hour at a time. If you do stand or walk for more than one hour, you will not hurt anything, but your leg will likely swell.~ ~ * As you feel comfortable, you may change from the walker or crutches to a cane and~then to independent walking. Medications: * Narcotic You will likely be sent home from the hospital with a prescription for the narcotic pain medication that worked best throughout your stay. * Aspirin Most patients will be required to take Aspirin 325mg twice a day for 6 weeks after surgery. This is obtained [id number] and a prescription is not necessary. * Other medications may be prescribed for specific circumstances. If you have any questions, please call the office at . * Resume previous home medications unless otherwise instructed TEDs/Elastic Stockings: The white elastic stockings help limit swelling and prevent blood clots from forming in your legs. The more you wear them, the more they work. Wear them for six weeks. Dressing Care: You will likely have a purple VAC dressing after surgery. This dressing will keep the incision dry and promote early healing. After about 8 days the batteries will wear out and the VAC will lose suction. Simply remove the dressing at that time and throw everything away, including the small suction machine. Then, you may leave the mary anne open to air or cover them with a dry dressing so they do not rub on your pants. The mary anne will be removed at your 2 week follow-up appointment. Showering: You may shower immediately with the purple VAC dressing. Let the shower spray hit your opposite side and slowly pat the plastic dry. Do not soak the dressing. After the dressing is removed you may shower normally with the mary anne exposed. Let soapy water run over the mary anne and pat them dry. Things To Watch For: * Drainage from the incision site that occurs more than one week after your surgery. * Increased redness at the incision site. * Fever above 102 degrees Fahrenheit. * Unusual chest pain or shortness of breath. * Call [facility] at with any of the above problems Follow-Up Visit: Follow-up with Dr. Posada 2 weeks after your day of surgery. An appointment was probably scheduled when you signed-up for surgery in the office. If you have any questions call Office Instructions: More detailed instructions as well as Frequently Asked Questions were provided in a folder by our office when you signed-up for surgery. Please review these instructions when you get home. If you have any further questions or concerns, please feel free to call the office at [phone] Current Hospital Diet Patient's current hospital diet: Regular Diet Discharge Diet Recommended Diet: Regular Diet Procedures Procedures Performed: Right Anterior Total Hip Arthroplasty Pending Studies Studies pending at discharge: no Medical Emergencies . Who to Call and When: Medical Emergencies: If at any time you feel your situation is an emergency, please call [phone] immediately. . Non-Emergent Contact Non-Emergency issues call your: Surgeon Call Non-Emergent contact if: wound has increased drainage, wound has increased redness . "Provider Documentation" section prepared by Jackson Posada. .
[2018-01-08] MEDS: MULTIVITAMIN TAB PO SCH (08:32)
[2018-01-08] MEDS: DOCUSATE SODIUM 100 MG CAP PO SCH ×2 (08:32→20:56)
[2018-01-08] MEDS: ATORVASTATIN 10 MG TAB PO SCH (08:32)
[2018-01-08] MEDS ORDERED: RXC5 PO (08:39)
[2018-01-08] MEDS ORDERED: XRL10 PO (08:39)
[2018-01-08] MEDS ORDERED: HYDROCHLOROTHIAZIDE 25 MG TAB PO SCH (09:00)
[2018-01-08] MEDS ORDERED: VALSARTAN 80 MG TAB PO SCH (09:00)
--- NOTE | 2018-01-08 09:10 | Anesthesiology Progress Note ---
Anesthesia Post Op Note Date & Time Jan 08, 2018 at 09:09 Vital Signs Pain Intensity: 0.0 Vital Signs Past 12 Hours Date Time Temp Pulse Resp B/P (MAP) Pulse Ox O2 Delivery O2 Flow Rate FiO2 01/08/18 08:28 Room Air 01/08/18 07:05 36.6 75 17 114/76 (89) 97 Room Air 01/08/18 04:09 36.7 79 16 125/74 (91) 98 Room Air 01/07/18 23:50 Room Air 01/07/18 23:40 36.5 76 14 104/68 (80) 97 Room Air Notes Mental Status: alert / awake / arousable, participated in evaluation Pt Amnestic to Procedure: Yes Nausea / Vomiting: adequately controlled Pain: adequately controlled Airway Patency, RR, SpO2: stable & adequate BP & HR: stable & adequate Hydration State: stable & adequate Neuraxial Anesthesia: was administered, sensory block resolved Anesthetic Complications: no major complications apparent
--- NOTE | 2018-01-08 09:23 | PROGRESS NOTE ---
DATE: 01/08/2018 CHIEF COMPLAINT: Status post right total hip arthroplasty, postop day #1. PROGRESS: Luz was seen and examined at bedside today. Overall, she is doing very well. She has very little pain in her right hip. She has been up and ambulating into the hallways already. She has no complaints. PHYSICAL EXAMINATION: RIGHT HIP: The Prevena VAC is to suction. Her leg lengths are equal. She is sitting up in the chair. She has active dorsiflexion, plantarflexion of her right ankle and sensation is intact. DATA: She has an H and H today of 9.1 and 27.3. Her glucose is 94. Her vital signs are all stable on room air and she is voiding on her own. X-rays postoperatively of the right hip show the prosthesis to be in anatomic alignment without any evidence of fracture, dislocation or loosening. IMPRESSION: Status post right total hip arthroplasty, postop day #1. PLAN: Overall, she is doing very well and happy with her progress. She will get physical therapy today. We will see how she does. The plan is to discharge her to home tomorrow morning with [facility].
[2018-01-08] MEDS: ACETAMINOPHEN 500 MG TAB PO SCH ×2 (14:23→20:56)
[2018-01-08 15:42] VITALS: BP 105/69; PULSE 76; TEMP 36.8; O2SAT 100
[2018-01-08] MEDS: SENNA 8.6 MG TAB PO SCH (20:56)
[2018-01-08] MEDS: ASCORBIC ACID 500 MG TAB PO SCH (20:56)
[2018-01-08 23:07] VITALS: BP 105/66; PULSE 73; TEMP 36.8; O2SAT 99
[2018-01-09] MEDS: ACETAMINOPHEN 500 MG TAB PO SCH (05:51)
[2018-01-09] MEDS: KETOROLAC TROMETHAMINE 30 MG/ML VIAL IV. SCH (05:51)
[2018-01-09] MEDS: LEVOTHYROXINE 112 MCG TAB PO SCH (05:51)
[2018-01-09 06:27] VITALS: BP 116/76; PULSE 76; TEMP 36.7; O2SAT 99
[2018-01-09] MEDS: RIVAROXABAN 10 MG TAB PO SCH (06:53)
[2018-01-09] MEDS: DOCUSATE SODIUM 100 MG CAP PO SCH (07:22)
[2018-01-09] MEDS: MULTIVITAMIN TAB PO SCH (07:22)
[2018-01-09] MEDS: ATORVASTATIN 10 MG TAB PO SCH (07:22)
[2018-01-09 07:41] LABS: BASO % 0.5 %; BASO ABS # 0.03 K/uL (0-0.2); EOS % 1.6 %; HEMATOCRIT 29.4 % (37-47); HEMOGLOBIN 9.7 g/dL (12.0-16.0); IG# 0.01 K/uL (0.00-0.02); LYMPH % 21.7 %; LYMPH ABS # 1.37 K/uL (1.2-3.4); MEAN CELL VOLUME 92.5 fL (80-100); MEAN CORPUSCULAR HEMOGLOBIN 30.5 pg (25-34); MEAN PLATELET VOLUME 9.1 fL (7.4-10.4); MONO ABS # 0.63 K/uL (0.11-0.59); NEUT ABS # 4.18 K/uL (1.4-6.5); PLATELET COUNT 306 K/uL (130-400); RED CELL DISTRIBUTION WIDTH CV 13.4 % (11.5-14.5); WHITE BLOOD COUNT 6.32 K/uL (4.8-10.8)
--- NOTE | 2018-01-09 09:37 | PROGRESS NOTE ---
DATE: 01/09/2018 CHIEF COMPLAINT: Status post right total hip arthroplasty postop day #2. PROGRESS: Luz was seen and examined at bedside today. Overall, she is doing very well. She is ambulating well with physical therapy. Her pain is controlled. She has no complaints. PHYSICAL EXAMINATION: RIGHT HIP: The Prevena VAC dressing is to suction. Her leg lengths are equal. She has active dorsiflexion and plantarflexion of her right ankle and sensation is intact throughout. IMPRESSION: Status post right total hip arthroplasty postop day #2. PLAN: At this point, she is doing very well and happy with her progress. She is on Xarelto for DVT prophylaxis. Will discharge her to home later today after physical therapy.
[2018-01-09 10:03] VITALS: BP 116/76; PULSE 76; TEMP 36.7; O2SAT 99
--- NOTE | 2018-01-09 13:50 | DISCHARGE SUMMARY ---
DISCHARGE DIAGNOSIS: Primary osteoarthritis of the right hip. PROCEDURE: Right total hip arthroplasty on 01/07/[address] Jackson Posada. DISCHARGE INSTRUCTIONS: 1. Xarelto 10 mg a day for 30 days. 2. VELIA hose stockings for 6 weeks. 3. Oxycodone 5-10 mg every 4 hours as needed for pain. 4. Lipitor 10 mg daily. 5. Hydrochlorothiazide 12.5 mg daily. 6. Synthroid 112 mcg daily. 7. Diovan 80 mg daily. 8. Continue all other vitamins, minerals and supplementations. 9. Follow up with Dr. Posada in 2 weeks. 10. Call the office of Dr. Posada with any questions or concerns. HOSPITAL COURSE: Luz is a pleasant 57-year-old female who presented to my office with chronic right hip pain. X-rays and clinical examination were diagnostic for primary osteoarthritis of the right hip. After failing conservative treatment, she elected to undergo a right total hip arthroplasty. On 01/07/2018, she arrived at [facility] and underwent a right hip replacement without complication. She had a spinal anesthetic. Postoperatively, she was started on Xarelto for DVT prophylaxis and discharged to general orthopedic floor. Her hospital course was uneventful. On postop day #1, her H and H was stable at 9.1 and 27.3. She was up and ambulating very well with physical therapy. Her pain was well controlled. She had no complaints. On postop day #2, her H and H was 9.7 and 29.4. She was feeling very well and participating well with physical therapy. She had minimal pain in her hip and was subsequently discharged to home with the above instructions.
== END 2018-01-09 10:45 | disposition home health service (06) | DRG 470 ==
LOC: C.ACU 05:00 → C.3E 09:06 → ENRESERV 09:24
PROVIDERS: ADMIT Orthopaedic Surgery; ATTEND Orthopaedic Surgery
PROC: 0SR904Z Replacement of Right Hip Joint with Ceramic on Polyethylene Synthetic Substitute, Open Approach (ICD-10-PCS; principal; 2018-01-07 07:00)
DX: M16.11 Unilateral primary osteoarthritis, right hip (principal); E03.9 Hypothyroidism, unspecified; I10 Essential (primary) hypertension; Z79.899 Other long term (current) drug therapy; Z79.82 Long term (current) use of aspirin; Z96.642 Presence of left artificial hip joint; Z86.718 Personal history of other venous thrombosis and embolism